=== PATIENT | male | born 1980 | race American Indian/Alaskan Native ===

== ENCOUNTER 2018-08-07 09:59 | Outpatient (CLI) | payer OTHER ==
--- NOTE | 2018-08-07 11:13 | XRay Report ---
AP AND LATERAL LUMBOSACRAL SPINE: History: Pain. The vertebral bodies are well mineralized and normal in alignment and vertebral height with well preserved interspace distances. The visualized portions of the posterior elements are normal. IMPRESSION: Normal study.
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
== END 2018-08-07 10:00 | disposition home or self-care (01) ==
LOC: XRAY 09:59
PROVIDERS: ATTEND Internal Medicine
DX: Z02.71 Encounter for disability determination (principal); Z96.643 Presence of artificial hip joint, bilateral
CPT/HCPCS: 72100; 73521